=== PATIENT | female | born 1985 | race Caucasian/White ===

== ENCOUNTER 2024-06-06 11:30 | Outpatient (RCR) | payer BC, SELFPAY ==
[2024-06-04 11:48] VITALS: BMI 25.8
[2024-06-04 11:49] VITALS: BP 136/84; PULSE 76; TEMP 36.9
--- NOTE | 2024-06-04 12:54 | PC.ADMIT ---
Patient is a 38 year old single mother of 2 daughters ages 4 and 7.5. 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 Patient has a history of depression, anxiety and ADHD. She is currently on a leave of absence from work as a result of her symptoms. 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 Patient reports she uses marijuana 5 mg edible on occasion to help with sleep. Reports drinking light beer 2-3 twice a week. Currently staying with parents for more support. Patient stated she is staying with her parents, more than half the time when I have the girls . Patient has the girls 3-4 days a week. Ages 4 and 7.5. She reports her ex is supportive and his parents. Patient is alert and oriented x4. Calm and cooperative. She presented with depressed mood and anxious affect. Denied SI, No HI. Medications reconciled with patient and patient's pharmacy. She reports taking medications as prescribed.
--- NOTE | 2024-06-04 21:52 | HO.PS.ADMBH ---
HPI Date of Service: 06/04/24 Chief Complaint: depression,anxiety Sources of Information: patient interviewed, chart reviewed and crisis/core team assessment reviewed [facility] Medical History (Updated 06/04/24 @ 11:48 by Tash Olivia RN) delivery delivered Eczema Surgical History (Updated 06/04/24 @ 11:48 by Tash Olivia RN) H/O breast augmentation Diagnostics Vital Signs (24Hr): Vital Signs - 24 hr 06/04/24 11:49 Temperature 98.4 F Pulse Rate 76 Blood Pressure 136/84 BMI result Body Mass Index 25.8 Meds/Allergies Meds Home Medications ?Medication ?Instructions ?Recorded ?Confirmed ?Type alprazolam 0.5 mg tablet (Xanax) 0.5 mg PO BID PRN Anxiety 06/04/24 06/04/24 History aripiprazole 2 mg tablet (Abilify) 2 mg PO BID 06/04/24 06/04/24 History dextroamphetamine-amphetamine ER 20 mg PO DAILY 06/04/24 06/04/24 History 20 mg 24hr capsule,extend release (Adderall XR) drospirenone 3 mg-ethinyl 1 tab PO DAILY 06/04/24 06/04/24 History estradiol 0.02 mg tablet (Loryna (28)) zolpidem 10 mg tablet (Ambien) 10 mg PO BEDTIME PRN Insomnia 06/04/24 06/04/24 History Allergies Allergies Allergy/AdvReac Type Severity Reaction Status Date / Time amoxicillin Allergy Hives Verified 06/04/24 11:47 bupropion [From Wellbutrin] Allergy Seizure Verified 06/04/24 11:46 Assessment & Plan Assessment & Plan Plan Admit to [facility] VS reviewed: abrefile, BP ? bpm start guanfacine ER 1 mg qd continue other regular medications? Routine lab work ordered as indicated EKG, routine for baseline QTc for medication considerations as indicated UDS as indicated [facility] reviewed Continue to monitor as per protocol Certification I certify that partial hospital treatment is medically necessary due to the symptoms and problems resulting from the patient's mental illness and the failure to treat the patient at the partial hospital level of care would likely result in the patient requiring inpatient psychiatric care which could not be prevented at a less intensive level of care. Time Spent With Patient Time: Total time managing care of this patient today ____ minutes.
== END 2024-06-06 23:59 | disposition home or self-care (01) ==
LOC: HO.PHPA 11:30
PROVIDERS: Visit Provider Psychiatry & Neurology Psychiatry
DX: F32.A Depression, unspecified (principal); F41.9 Anxiety disorder, unspecified
CPT/HCPCS: 90791; 90853